=== PATIENT | male | born 1965 | race American Indian/Alaskan Native ===

== ENCOUNTER 2019-03-22 08:01 | Outpatient (CLI) | payer BC ==
--- NOTE | 2019-03-22 10:14 | Magnetic Resonance Report ---
MRA/MRV ABDOMEN WITH AND WITHOUT CONTRAST HISTORY: Malignant hypertension. TECHNIQUE: Multisequence, multiplanar MRI. Coronal 3-D multiphase MRA following IV gadolinium. COMPARISON: None at this facility. FINDINGS: The aorta, celiac axis, SMA, JAMES and bilateral iliac systems are widely patent with less than 20% stenosis. No evidence for atherosclerotic disease, aneurysm or dissection. Bilateral single renal arteries are identified originating near the level of L1. There is no evidence for fibromuscular changes. There is less than 20% stenosis in the bilateral renal arteries. Both kidneys appear normal size, contour and position. No parenchymal disease, cystic disease or mass. The visualized iliac veins, IVC, hepatic veins and portal venous system are patent with no evidence of thrombosis or stenosis. MR signal characteristics of the liver, biliary system, pancreas, spleen, adrenal glands and visualized bowel loops are within normal limits. No evidence for adenopathy, ascites or inflammation. IMPRESSION: Normal MRA and MRV of the abdomen.
== END 2019-03-22 08:02 | disposition home or self-care (01) ==
LOC: MRI 08:01
PROVIDERS: ATTEND Internal Medicine Cardiovascular Disease
DX: I11.9 Hypertensive heart disease without heart failure (principal)
CPT/HCPCS: 36415; 82565; 84520; A9577; C8902; 74185